=== PATIENT | male | born 1960 | race Caucasian/White ===

== ENCOUNTER 2021-01-19 10:45 | Emergency (ER) | payer BC ==
--- NOTE | 2021-01-19 10:57 | EDM.PDOC ---
ED HPI GENERAL MEDICAL PROBLEM - General Chief Complaint: Cardiovascular Problem Stated Complaint: SHORTNESS OF BREATH Time Seen by Provider: 01/19/21 10:57 Source of Information: Reports: Patient - History of Present Illness INITIAL COMMENTS - FREE TEXT/NARRATIVE: Jaziel, 60-year-old male, presented by private vehicle per pedis to the emergency department after he was initially seen at the [facility] and advised he needed further work-up. He states for several weeks now he has noted mild shortness of breath which has significantly worsened on exertion today. When this first developed there was significant improvement after the first week, then started seemingly worsening this past week again. Today he was extremely exerted needing to rest after ascending 1 flight of stairs at work. He denies any chest pain. He denies any exposures or risk factors as he is a non-smoker. His hypertension has been well controlled. 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 No known COVID-19 exposures. NOT VACCINATED for CoVid 19 Onset: Gradual Duration: Week(s):, Getting Worse - Related Data Allergies Allergy/AdvReac Type Severity Reaction Status Date / Time Penicillins Allergy Cannot Verified 01/19/21 11:19 Remember Home Meds: Home Meds lisinopriL [Lisinopril] 20 mg PO DAILY 01/19/21 [History] Past Medical History Cardiovascular History: Reports: Hypertension Social & Family History - Family History Family Medical History: No Pertinent Family History - Tobacco Use Tobacco Use Status *Q: Never Tobacco User - Caffeine Use Caffeine Use: Reports: Soda (occasional). Denies: Coffee - Alcohol Use Alcohol Use Frequency: Rarely - Recreational Drug Use Recreational Drug Use: No Drug Use in Last 12 Months: No ED ROS GENERAL - Review of Systems Review Of Systems: Comprehensive ROS is negative, except as noted in HPI. ED EXAM, GENERAL - Physical Exam Exam: See Below Free Text/Narrative:: Alert, oriented, with no cyanosis nor pallor. He was initially de-satting on room air which supplemental oxygen brought him up to 92/93%. His heart rate was initially in the 120s with radial pulse correlating. HEENT is negative to discharge nor deformity. [place] moist mucous membranes PERRLA no icterus no injection. Neck is soft supple with no lymphadenopathy, no JVD, no carotid bruit. Thorax is clear throughout I do not appreciate any wheezes no crackles. Cardiac is tachycardic with no appreciated murmur. After Lopressor was given IV and fluids running heart rate comes down into the 90s with saturation holding at 93%. Cardiac was auscultated at that time with no evidence of murmur. Abdomen is soft bowel sounds are present there is no megaly I do not appreciate any flank pain. rectal was deferred. There is no pitting edema to the lower extremities he is able to move all extremities about in his radial pulses are correlating with apical heart rate at this time at a rate of 92. #1 Interpretation EKG Date: 01/19/21 Time: 10:59 Rhythm: NSR Rate (Beats/Min): 117 [place]: Normal P-Wave: Present QRS: Normal ST-T: Depressed Comparison: NA - No Prior EKG #2 Interpretation EKG Date: 01/19/21 Time: 11:32 Rhythm: NSR [place]: Normal P-Wave: Present QRS: Normal ST-T: Normal QT: Normal Comparison: Change From Previous EKG (Rate decrease after lopressor IV) Course - Vital Signs Last Recorded V/S: Last Vital Signs Temp 97.7 F 01/19/21 11:16 Pulse 100 01/19/21 15:10 Resp 24 H 01/19/21 15:00 BP 149/107 H 01/19/21 15:10 Pulse Ox 95 01/19/21 15:00 - Orders/Labs/Meds Orders: Active Orders 24 hr Category Date Time Status EKG Documentation Completion [RC] ASDIRECTED Care 01/19/21 10:59 Active EKG Documentation Completion [RC] ASDIRECTED Care 01/19/21 11:28 Active Peripheral IV Care [RC] . DIRECTED Care 01/19/21 11:00 Active Peripheral IV Care [RC] . DIRECTED Care 01/19/21 12:24 Active PTT,PARTIAL THROMBOPLSTIN TIME [COAG] Stat Lab 01/19/21 15:00 Ordered Heparin Sodium/D5W 250 ml Med 01/19/21 12:11 Active IV STAT Sodium Chloride 0.9% [Normal Saline] 100 ml Med 01/19/21 11:45 Active IV ASDIRECTED Sodium Chloride 0.9% [Saline Flush] Med 01/19/21 11:00 Active 10 ml FLUSH Q8HR PRN Sodium Chloride 0.9% [Saline Flush] Med 01/19/21 12:24 Active 10 ml FLUSH Q8HR PRN Peripheral IV Insertion Adult [OM.PC] Routine Oth 01/19/21 11:00 Ordered Peripheral IV Insertion Adult [OM.PC] Routine Oth 01/19/21 12:24 Ordered EKG 12 Lead [EK] Urgent Ther 01/19/21 10:59 Ordered EKG 12 Lead [EK] Urgent Ther 01/19/21 11:28 Ordered Medication Orders Sodium Chloride (Normal Saline) 100 mls @ 200 mls/hr IV ASDIRECTED BENJI Heparin Sodium/Dextrose () 250 mls @ 20.412 mls/hr IV STAT STA Stop: 01/20/21 00:25 Last Admin: 01/19/21 12:26 Dose: 18 units/kg/hr, 20.412 mls/hr Documented by: SULTANA Cosigned by: LIZZETTE Sodium Chloride (Sodium Chloride 0.9% 10 Ml Syringe) 10 ml FLUSH Q8HR PRN PRN Reason: keep vein open Last Admin: 01/19/21 15:11 Dose: 10 ml Documented by: Admin: 01/19/21 11:28 Dose: 10 ml Documented by: Admin: 01/19/21 11:00 Dose: 10 ml Documented by: LIZZETTE Sodium Chloride (Sodium Chloride 0.9% 10 Ml Syringe) 10 ml FLUSH Q8HR PRN PRN Reason: keep vein open Labs: Laboratory Tests 01/19/21 01/19/21 01/19/21 Range/Units 10:58 10:58 10:58 WBC 4.96 L (5.00-10.00) 10^3/uL RBC 5.36 (4.50-6.00) 10^6/uL Hgb 15.6 (13.0-17.0) g/dL Hct 47.2 (40.0-52.0) % MCV 88.1 (82.0-92.0) fL MCH 29.1 (27.0-31.0) pg MCHC 33.1 (32.0-36.0) g/dL RDW 12.2 (11.5-14.5) % Plt Count 335 (150-400) 10^3/uL MPV 9.1 (7.4-10.4) fL Immature Gran % (Auto) 0.4 (0.0-5.0) % Neut % (Auto) 70.4 H (50.0-70.0) % Lymph % (Auto) 15.9 L (20.0-40.0) % Johnson % (Auto) 10.1 H (2.0-8.0) % Eos % (Auto) 2.4 (1.0-3.0) % Baso % (Auto) 0.8 (0.0-1.0) % Neut # (Auto) 3.49 (2.50-7.00) 10^3/uL Lymph # (Auto) 0.79 L (1.00-4.00) 10^3/uL Johnson # (Auto) 0.50 (0.10-0.80) 10^3/uL Eos # (Auto) 0.12 (0.10-0.30) 10^3/uL Baso # (Auto) 0.04 (0.00-0.10) 10^3/uL Immature Gran # (Auto) 0.02 (0.00-0.50) 10^3/uL APTT (22.8-31.4) SEC D-Dimer, Quantitative 2560 H (<400) ng/mL Sodium 138 (136-145) mmol/L Potassium 4.0 (3.5-5.1) mmol/L Chloride 103 (98-107) mmol/L Carbon Dioxide 24.2 (21.0-32.0) mmol/L Anion Gap 14.8 (5-15) mmol/L BUN 16 (7-18) mg/dL Creatinine 1.10 (0.51-1.17) mg/dL Est Cr Clr Drug Dosing 88.77 mL/min Estimated GFR (MDRD) > 60 mL/min Glucose 134 (70-140) mg/dL Calcium 8.8 (8.7-10.3) mg/dL Total Bilirubin 0.6 (0.2-1.0) mg/dL AST 24 (15-37) U/L ALT 40 (14-63) U/L Alkaline Phosphatase 99 (46-116) U/L Troponin I High Sens 88.500 H* (0-76.000) pg/mL Total Protein 7.7 (6.4-8.2) g/dL Albumin 3.94 (3.40-5.00) g/dL 01/19/21 Range/Units 10:58 WBC (5.00-10.00) 10^3/uL RBC (4.50-6.00) 10^6/uL Hgb (13.0-17.0) g/dL Hct (40.0-52.0) % MCV (82.0-92.0) fL MCH (27.0-31.0) pg MCHC (32.0-36.0) g/dL RDW (11.5-14.5) % Plt Count (150-400) 10^3/uL MPV (7.4-10.4) fL Immature Gran % (Auto) (0.0-5.0) % Neut % (Auto) (50.0-70.0) % Lymph % (Auto) (20.0-40.0) % Johnson % (Auto) (2.0-8.0) % Eos % (Auto) (1.0-3.0) % Baso % (Auto) (0.0-1.0) % Neut # (Auto) (2.50-7.00) 10^3/uL Lymph # (Auto) (1.00-4.00) 10^3/uL Johnson # (Auto) (0.10-0.80) 10^3/uL Eos # (Auto) (0.10-0.30) 10^3/uL Baso # (Auto) (0.00-0.10) 10^3/uL Immature Gran # (Auto) (0.00-0.50) 10^3/uL APTT 29.4 (22.8-31.4) SEC D-Dimer, Quantitative (<400) ng/mL Sodium (136-145) mmol/L Potassium (3.5-5.1) mmol/L Chloride (98-107) mmol/L Carbon Dioxide (21.0-32.0) mmol/L Anion Gap (5-15) mmol/L BUN (7-18) mg/dL Creatinine (0.51-1.17) mg/dL Est Cr Clr Drug Dosing mL/min Estimated GFR (MDRD) mL/min Glucose (70-140) mg/dL Calcium (8.7-10.3) mg/dL Total Bilirubin (0.2-1.0) mg/dL AST (15-37) U/L ALT (14-63) U/L Alkaline Phosphatase (46-116) U/L Troponin I High Sens (0-76.000) pg/mL Total Protein (6.4-8.2) g/dL Albumin (3.40-5.00) g/dL Meds: Medications Generic Name Dose Route Start Last Admin Trade Name Domenico PRN Reason Stop Dose Admin Sodium Chloride 100 mls @ 200 mls/hr 01/19/21 11:45 Normal Saline IV ASDIRECTED BENJI Heparin Sodium/Dextrose 250 mls @ 20.412 mls/hr 01/19/21 12:11 01/19/21 12:26 IV 01/20/21 00:25 18 units/kg/hr STAT STA 20.412 mls/hr Administration 18 UNITS/KG/HR Sodium Chloride 10 ml 01/19/21 11:00 01/19/21 15:11 Sodium Chloride 0.9% 10 Ml Syringe FLUSH 10 ml Q8HR PRN Administration keep vein open Sodium Chloride 10 ml 01/19/21 12:24 Sodium Chloride 0.9% 10 Ml Syringe FLUSH Q8HR PRN keep vein open Discontinued Medications Generic Name Dose Route Start Last Admin Trade Name Domenico PRN Reason Stop Dose Admin Heparin Sodium (Porcine) 5,000 units 01/19/21 12:10 01/19/21 12:26 Heparin Sodium 5,000 Units/Ml Vial IVPUSH 01/19/21 12:11 5,000 units .BOLUS ONE Administration Sodium Chloride 1,000 mls @ 999 mls/hr 01/19/21 11:08 01/19/21 11:15 Normal Saline IV 01/19/21 12:08 999 mls/hr .BOLUS ONE Administration Iopamidol 100 ml 01/19/21 11:45 Iopamidol 755 Mg/Ml 100 Ml Bottle IV 01/19/21 11:46 ONETIME ONE Metoprolol Tartrate 5 mg 01/19/21 11:00 01/19/21 11:07 Metoprolol Tartrate 5 Mg/5 Ml Sdv IVPUSH 01/19/21 11:01 5 mg ONETIME ONE Administration Metoprolol Tartrate 5 mg 01/19/21 14:51 01/19/21 15:10 Metoprolol Tartrate 5 Mg/5 Ml Sdv IVPUSH 01/19/21 14:52 5 mg ONETIME ONE Administration - Radiology Interpretation Free Text/Narrative:: No hemo/pneumo noted. No gross infiltrates. OVER Read pending. CT Results Date: 01/19/21 (generator technician as well as myself see obvious pulmonary embolus) - Re-Assessments/Exams Free Text/Narrative Re-Assessment/Exam: 01/19/21 12:25 Jaziel is advised on my review appears obvious for obstruction to the left pulmonary artery as well as somewhat to the right and we will initiate treatment with heparin at this time awaiting official report. Free Text/Narrative Re-Assessment/Exam: 01/19/21 14:21 Remains resting comfortably with no distress. Saturations 93% with a heart rate of 96 blood pressure of 129/90. Denies any shortness of breath or chest pressure/discomfort. Informed that we are still awaiting for room availability at [facility]. 01/19/21 14:53 Blood pressure has continued to elevate both systolically and diastolic as well as heart rate now maintaining in the 103 range. We will implement another 5 mg of Lopressor IV as it was significant in reducing blood pressure as well as heart rate upon initial arrival. 01/19/21 15:09 Received phone call from [facility] having now bed space transfer to [address] with report to be called to [phone]. Advised 1 call staff that I would be contacting Dr. Monroe if PTT returned out of the therapeutic level for his advice and concern. Departure - Departure Time of Disposition: 15:31 Disposition: DC/Tfer to Acute Hospital 02 Condition: Fair Clinical Impression: Elevated troponin, SOB (shortness of breath) on exertion, Elevated d-dimer, Tachycardia, Pulmonary embolism, bilateral - Discharge Information *PRESCRIPTION DRUG MONITORING PROGRAM REVIEWED*: Not Applicable *COPY OF PRESCRIPTION DRUG MONITORING REPORT IN PATIENT PAO: Not Applicable Referrals: Tianna Berkowitz MD [Primary Care Provider] - Rashaad Christensen NP [Nurse Practitioner] - Jami Hall MD [Physician] - Forms: ED Department Discharge, Interfacility Transfer EMTALA Additional Instructions: Transfer [facility] pending bed space. Sepsis Event Note (ED) - Focused Exam Vital Signs: Vital Signs Temp Pulse Pulse Resp BP BP Pulse Ox 01/19/21 15:10 100 149/107 H 01/19/21 15:00 100 24 H 149/107 H 95 01/19/21 14:30 99 19 137/104 H 93 L 01/19/21 14:00 99 22 H 129/90 93 L 01/19/21 13:30 99 21 H 132/94 H 91 L 01/19/21 13:00 101 H 18 143/99 H 93 L 01/19/21 12:46 101 H 22 H 142/104 H 94 L 01/19/21 12:06 103 H 20 134/95 H 93 L 01/19/21 11:45 95 24 H 107/81 92 L 01/19/21 11:30 94 22 H 107/78 92 L 01/19/21 11:16 97.7 F 124 H 25 H 150/96 H 86 L 01/19/21 11:15 90 21 H 113/80 93 L 01/19/21 11:07 116 H 126/99 H 01/19/21 11:00 114 H 22 H 126/99 H 93 L ED Communication - ED Communication Date/Time Date: 01/19/21 Time Called: 12:36 - Discussed Case With (1) Discussed Case With (1): Outpatient Provider Person/s Notified (1): Jami Hall (discussion of transfer) - Conversation Summary Radiology Reading Discussed with Radiologist: Yes - Problem List & Annotations (1) SOB (shortness of breath) on exertion SNOMED Code(s): 31182364 Code(s): R06.02 - SHORTNESS OF BREATH Status: Acute Current Visit: Yes (2) Tachycardia SNOMED Code(s): 3874593 Code(s): R00.0 - TACHYCARDIA, UNSPECIFIED Status: Acute Current Visit: Yes (3) Elevated troponin SNOMED Code(s): 521232260, 931918076, 049897172 Code(s): R77.8 - OTHER SPECIFIED ABNORMALITIES OF PLASMA PROTEINS Status: Acute Priority: High Current Visit: Yes (4) Elevated d-dimer SNOMED Code(s): 687162512 Code(s): R79.89 - OTHER SPECIFIED ABNORMAL FINDINGS OF BLOOD CHEMISTRY Status: Acute Current Visit: Yes (5) Pulmonary embolism, bilateral SNOMED Code(s): 35221003 Code(s): I26.99 - OTHER PULMONARY EMBOLISM WITHOUT ACUTE COR PULMONALE Status: Acute Priority: High Current Visit: Yes - Problem List Review Problem List Initiated/Reviewed/Updated: Yes - My Orders Last 24 Hours: My Active Orders 01/19/21 10:59 EKG Documentation Completion [RC] ASDIRECTED EKG 12 Lead [EK] Urgent 01/19/21 11:00 Peripheral IV Care [RC] . DIRECTED Sodium Chloride 0.9% [Saline Flush] 10 ml FLUSH Q8HR PRN Peripheral IV Insertion Adult [OM.PC] Routine 01/19/21 11:28 EKG Documentation Completion [RC] ASDIRECTED EKG 12 Lead [EK] Urgent 01/19/21 11:45 Sodium Chloride 0.9% [Normal Saline] 100 ml IV ASDIRECTED 01/19/21 12:11 Heparin Sodium/D5W 250 ml IV STAT 01/19/21 12:24 Peripheral IV Care [RC] . DIRECTED Sodium Chloride 0.9% [Saline Flush] 10 ml FLUSH Q8HR PRN Peripheral IV Insertion Adult [OM.PC] Routine 01/19/21 15:00 PTT,PARTIAL THROMBOPLSTIN TIME [COAG] Stat - Assessment/Plan Last 24 Hours: My Active Orders 01/19/21 10:59 EKG Documentation Completion [RC] ASDIRECTED EKG 12 Lead [EK] Urgent 01/19/21 11:00 Peripheral IV Care [RC] . DIRECTED Sodium Chloride 0.9% [Saline Flush] 10 ml FLUSH Q8HR PRN Peripheral IV Insertion Adult [OM.PC] Routine 01/19/21 11:28 EKG Documentation Completion [RC] ASDIRECTED EKG 12 Lead [EK] Urgent 01/19/21 11:45 Sodium Chloride 0.9% [Normal Saline] 100 ml IV ASDIRECTED 01/19/21 12:11 Heparin Sodium/D5W 250 ml IV STAT 01/19/21 12:24 Peripheral IV Care [RC] . DIRECTED Sodium Chloride 0.9% [Saline Flush] 10 ml FLUSH Q8HR PRN Peripheral IV Insertion Adult [OM.PC] Routine 01/19/21 15:00 PTT,PARTIAL THROMBOPLSTIN TIME [COAG] Stat Plan: [facility] accepting with no available bed at this time. Possible two hour wait for bed availability.
[2021-01-19] MEDS: Sodium Chloride 0.9% 10 ML Syringe FLUSH PRN ×3 (11:00→15:11)
[2021-01-19] MEDS ORDERED: Metoprolol Tartrate 5 MG/5 ML SDV IVPUSH ONE ×2 (11:00→14:51)
[2021-01-19] MEDS ORDERED: Sodium Chloride 0.9% 1,000 ML IV ONE (11:08)
[2021-01-19 11:26] LABS: ANION GAP 14.8 mmol/L (5-15); CHLORIDE,CL 103 mmol/L (98-107); SODIUM,NA 138 mmol/L (136-145)
--- NOTE | 2021-01-19 11:29 | CR ---
[id number] RAD/RAD Chest PA or AP 1V EXAM: SINGLE VIEW CHEST. INDICATION: SHORTNESS OF BREATH. TACHYCARDIA COMPARISON: NO PREVIOUS SIMILAR EXAM IS AVAILABLE FINDINGS: The lungs are clear The cardiomediastinal contour is mildly prominent IMPRESSION: NO PNEUMONIA OR EDEMA Guille Menendez MD 01/19/21 [id number] Thank you for allowing us to participate in the care of your patient.
[2021-01-19] MEDS ORDERED: Iopamidol 755 Mg/ML 100 ML Bottle IV ONE (11:45)
[2021-01-19] MEDS ORDERED: Sodium Chloride 0.9% 100 ML IV SCH (11:45)
[2021-01-19] MEDS ORDERED: Heparin Sodium 5,000 Units/ML Vial IVPUSH ONE (12:10)
[2021-01-19] MEDS ORDERED: Heparin Sodium/D5W 250 ML IV STA (12:11)
[2021-01-19] MEDS ORDERED: Sodium Chloride 0.9% 10 ML Syringe FLUSH PRN (12:24)
--- NOTE | 2021-01-19 12:38 | CT ---
[id number] CT/CTA Chest EXAM: CT ANGIOGRAM CHEST INDICATION: SHORTNESS OF BREATH, ELEVATED D - DIMER. COMPARISON: Radiograph same date. DISCUSSION: There are significant bilateral pulmonary emboli beginning in the main pulmonary artery where there is a saddle embolism and extending into the lobar, segmental and subsegmental branches bilaterally. Shift of the interventricular septum and dilation of the right ventricle is compatible with right heart strain. A peripheral mixed groundglass and airspace opacity in the left lower lobe measuring up to 25 mm is nonspecific, but likely represents an infarct in the context of pulmonary emboli. Bronchial wall thickening is compatible with underlying bronchitis. Mild nonspecific lymphadenopathy including a distal left paratracheal node measuring 17 x 11 mm and a subcarinal node measuring 29 x 12 mm. Bronchial wall thickening is compatible with underlying bronchitis. No pleural or pericardial effusion. Normal heart size. Small sliding type hiatus hernia. Hepatic steatosis. Scattered diverticula in the partially imaged colon without evidence of diverticulitis. The osseous structures are unremarkable. Results called at time dictation. IMPRESSION: 1. Extensive bilateral pulmonary emboli with evidence of right heart strain. 2. A peripheral glass and airspace opacity in the left lower lobe likely represents an infarct. Gio Ruiz MD 01/19/21 [id number] Thank you for allowing us to participate in the care of your patient.
== END 2021-01-19 15:35 ==
LOC: KA.ED 10:45
DX: I26.99 Other pulmonary embolism without acute cor pulmonale (principal); R79.89 Other specified abnormal findings of blood chemistry; R00.0 Tachycardia, unspecified; Z88.0 Allergy status to penicillin; Z79.899 Other long term (current) drug therapy
CPT/HCPCS: 36415; 71045; 71275; 80053; 84484; 85025; 85379; 85730; 93005; 96365; 96366; 96374; 96376; 99284; 99285-25; J1644; J3490; J7030; Q9967